=== PATIENT | male | born 1950 | race Caucasian/White ===

== ENCOUNTER 2019-03-14 13:15 | Inpatient (IN) | payer MEDICARE ==
[~2019-03-14] VITALS: Ht 172.7 cm; Wt 82.3 kg
--- NOTE | 2019-03-14 14:37 | HP ---
ADMIT DATE: 03/14/2019 CHIEF COMPLAINT AND HISTORY OF PRESENT ILLNESS: This 68-year-old white male is well known to me in followup in the office. The patient was admitted through the office on the day of admission with being off balance most of the time for the 24 hours before going side to side walking and fell the prior day in the garden getting abrasions to his face. He thought he might have passed out at that point in time. He feels like he might have had slurred speech at times during this time. PAST MEDICAL HISTORY: The patient's past medical history is remarkable for hypertension. He had a recent right rotator cuff repair, has history of hypothyroidism and has also had some recent kidney stones. CURRENT MEDICATIONS: Include amlodipine 10 mg daily, clonidine 0.1 mg b.i.d., levothyroxine 75 mcg daily, hydrochlorothiazide 12.5 daily. ALLERGIES: He has no known drug allergies. SOCIAL HISTORY AND FAMILY HISTORY: Noncontributory. REVIEW OF SYSTEMS: As mentioned above. PHYSICAL EXAMINATION: GENERAL: He is a well-developed, well-nourished white male, who appears out of sorts. VITAL SIGNS: Stable. He is afebrile. Blood pressure is 135/97, which is high for him in the office. HEAD, EYES, EARS, NOSE AND THROAT: Unremarkable. There is no nystagmus noted. NECK: Supple without adenopathy or thyromegaly. CHEST: Clear to auscultation and percussion. HEART: Regular rate and rhythm without S3, S4, or murmur. ABDOMEN: Soft, nontender without hepatosplenomegaly or mass. EXTREMITIES: Without cyanosis, clubbing, edema. NEUROLOGIC: He is intact. IMPRESSION: Decreased balance with fall and possible syncope with some possible slurred speech associated with this and feelings of dizziness, which is hard for him to describe. PLAN: The patient has been admitted, telemetry will be instituted. Cardiology and Neurology will be asked to see him. MRI of the head will be obtained and the patient will be monitored, managed and treated appropriately. PARISA REYNA MD DR: ELEAZAR/chava JOB#: [id number] / [id number]
[2019-03-14 14:45] VITALS: BP 137/93
[2019-03-14] MEDS ORDERED: traMADol 50 MG TABLET PO PRN (15:15)
[2019-03-14] MEDS ORDERED: AMLO10TA8 PO (15:16)
[2019-03-14] MEDS ORDERED: CLON0.1T PO (15:16)
[2019-03-14] MEDS ORDERED: VARE1TAB21 PO (15:16)
[2019-03-14] MEDS ORDERED: IBUP-1060 PO (15:16)
[2019-03-14] MEDS ORDERED: LEVO100T5 PO (15:16)
[2019-03-14] MEDS ORDERED: ASPI-630 PO (15:16)
[2019-03-14] MEDS ORDERED: TRAM50TA PO (15:16)
[2019-03-14] MEDS ORDERED: ACET325T9 PO (15:16)
[2019-03-14] MEDS ORDERED: MELO15TA23 PO (15:16)
[2019-03-14] MEDS ORDERED: HYDR12.58 PO (15:16)
[2019-03-14 15:52] LABS: BASO % 1 % (0-3); EOS # 0.1 x10^3/uL (0.0-0.7); EOS % 3 % (0-3); HEMATOCRIT 42.5 % (39.0-53.0); HEMOGLOBIN 14.5 g/dL (13.0-17.5); LYMPH # 1.1 x10^3/uL (1.0-4.8); LYMPH % 24 % (24-48); MEAN CORPUSCULAR HEMOGLOBIN 30 pg (25-35); MEAN CORPUSCULAR HGB CONC 34 g/dL (31-37); MEAN CORPUSCULAR VOLUME 87 fL (79-100); MONO # 0.6 x10^3/uL (0.0-1.1); MONO % 13 % (0-9); NEUT # 2.8 x10^3uL (1.8-7.7); NEUT % 60 % (31-73); PLATELET COUNT 196 x10^3/uL (140-400); RED BLOOD COUNT 4.88 x10^6/uL (4.30-5.70); RED CELL DISTRIBUTION WIDTH 14.5 % (11.5-14.5); WHITE BLOOD COUNT 4.7 x10^3/uL (4.0-11.0)
--- NOTE | 2019-03-14 16:01 | PDOC2 ---
JOSE LUIS REN ALUMNAE SECRETARY 03/14/19 1601: CARDIAC CONSULT DATE OF CONSULT Date of Consult DATE: 03/14/19 TIME: 15:46 REASON FOR CONSULT Reason for Consult: Syncope REFERRING PHYSICIAN Referring Physician: Dr. Barroso SOURCE Source: Chart review, Patient HISTORY OF PRESENT ILLNESS HISTORY OF PRESENT ILLNESS This is a 68 yo male who presented as a direct admit from Dr. William office secondary to syncope. Patient reports is at home with "the flu". Yesterday morning, was taking her things upstairs. When he got up the stairs, began to feel lightheaded and dizzy. [place] as if "someone drugged me". Decided to tap a nap. Woke up feeling much better. That afternoon worked outside in garage and in the yard, which was very physical work. At one point, he bent over to forklift picker some sticks. Immediately started feeling dizzy again and subsequently passed out falling to the ground. Thinks he passed out briefly. Does remember placing his hands down to catch himself. No traumatic injury although did have a few scrapes on his forehead. Since syncopal episode, patient continues to feel "drugged". Made an appointment with Dr. Barroso today, was admitted directly to the hospital for further evaluation and treatment. Denies any recent chest pain, diaphoresis, palpitations, orthopnea, LE edema, or nausea/vomiting. Reports somewhat chronic shortness of breath. Quit smoking 6 months ago and is on Chantix. History of hypertension. No previous history of CAD/heart disease, although naresh ent reports all of the males in his family have in their 60's due to heart attacks except one. PAST MEDICAL HISTORY Cardiovascular: HTN Pulmonary: Asthma CENTRAL NERVOUS SYSTEM: Other (no pertinent hx) GI: No pertinent hx Heme/Onc: No pertinent hx Hepatobiliary: No pertinent hx Psych: No pertinent hx Musculoskeletal: Osteoarthritis Rheumatologic: No pertinent hx Infectious disease: No pertinent hx ENT: No pertinent hx Renal/: Benign prostatic enlarg. Endocrine: Hypothyroidism Dermatology: No pertinent hx PAST SURGICAL HISTORY Past Surgical History: Other (right rotator cuff surgery. ) FAMILY HISTORY Family History: Heart Disease, Hypertension SOCIAL HISTORY Smoke: Quit (6 months ago) ALCOHOL: other (2 beers per night ) Drugs: None Lives: with Family ALLERGIES ALLERGIES: Coded Allergies: No Known Drug Allergies (Unverified , 03/14/19) ROS Review of System 14 point ROS conducted with pertinent positives noted above in HPI. PHYSICAL EXAM General: Alert, Oriented X3, Cooperative, No acute distress HEENT: Atraumatic, Mucous membr. moist/pink Lungs: Clear to auscultation, Other (diminished bases) Heart: Regular rate, Normal S1, Normal S2, Other (2/6 systolic murmur ) Abdomen: Soft, No tenderness Extremities: No edema, Normal pulses Skin: No significant lesion Neuro: Normal speech, Sensation intact Psych/Mental Status: Mental status NL, Mood NL VITALS VITALS Vital Signs Date Time Temp Pulse Resp B/P (MAP) Pulse Ox O2 Delivery O2 Flow Rate FiO2 03/14/19 14:45 98.4 82 22 137/93 (108) 96 Room Air 98.4 ASSESSMENT/PLAN ASSESSMENT/PLAN 1. Syncope; no acute event thus far on tele. MRI ordered. 2. Hypertension; controlled 3. Hypothyroidism; on replacement therapy 4. Family hx heart disease 5. H/o tobaccoism; recently quit on Chantix Recommendations EKG Routine labs Echo to assess LV systolic function Orthostatic HR and BP Monitor tele Check lipid panel Consider further ischemic workup given risk factors, probably as an outpatient If above unrevealing, consider outpatient event monitor to r/o contributing arrhythmias. DALLIN MYERS MD 03/15/19 0720: CARDIAC CONSULT ASSESSMENT/PLAN ASSESSMENT/PLAN Patient seen and examined 03/14/19. Agree with INTERNAL SECURITY MANAGER's assessment and plan. Syncope of uncertain etiology. Telemetry did not show any significant arrhythmia so far. Check orthostatics. Check 2-D echo to assess LV function and rule out structural abnormalities. If workup is negative, we will consider event monitor as an outpatient. Thank you for your consultation. JOSE LUIS REN APRN Mar 14, 2019 16:01 DALLIN MYERS MD Mar 15, 2019 07:20
[2019-03-14 16:17] LABS: ALBUMIN 3.7 g/dL (3.4-5.0); ALBUMIN/GLOBULIN RATIO 1.4 (1.0-1.7); CALCIUM 9.4 mg/dL (8.5-10.1); GFR 74.8; POTASSIUM 3.5 mmol/L (3.5-5.1); TOTAL BILIRUBIN 0.2 mg/dL (0.2-1.0); TOTAL PROTEIN 6.3 g/dL (6.4-8.2)
[2019-03-14 16:38] LABS: BILIRUBIN,URINE NEGATIVE (NEG); CLARITY,URINE CLEAR; COLOR,URINE YELLOW; NITRITE,URINE POSITIVE (NEG); PROTEIN,URINE NEGATIVE (NEG-TRACE)
[2019-03-14 16:47] LABS: BACTERIA,URINE MODERATE /HPF (0-FEW); RBC,URINE OCC /HPF (0-2); SQUAMOUS EPITHELIAL CELL,UR OCC /LPF
--- NOTE | 2019-03-14 16:52 | PDOC2 ---
NEUROLOGY CONSULT Date of Admission Date of Admission DATE: 03/14/19 TIME: 16:39 Reason for Consult Reason for Consult: IMPRESSION: Syncopal spell. Seizure evaluation. Fall. Confusion. HTN. Substance use/abuse, alcohol. RECOMMENDATIONS/PLAN: CT head and neck w/o contrast. MRI w/o contrast. Contrast MRI if has abnormal findings. EEG. Lab: see orders. Vit B1 100 mg daily. Continue ASA if no SAH or ICH. Alcohol abstinence. HISTORY OF PRESENT ILLNESS This is a 68-y-old male patient who presented as a direct admit from Dr. William office secondary to a syncopal spell. The patient stated he was working in the back yard in the afternoon. He felt dizzy then fell on the ground. He did not remember how long he was on the ground, but he realized he was face down on the soil. He got up continued doing his yard work for about 30 minutes then went inside the house and found he had blood on his face and nose. He felt dizziness, confusion, mind not clear, and not remember things well since falling. No vomiting, headaches, numbness or weakness. His suggested get medical attention, so he went to his Primary Care Physician on 03/14. PAST MEDICAL HISTORY Cardiovascular: HTN Pulmonary: Asthma CENTRAL NERVOUS SYSTEM: Other (no pertinent hx) GI: No pertinent hx Heme/Onc: No pertinent hx Hepatobiliary: No pertinent hx Psych: No pertinent hx Musculoskeletal: Osteoarthritis Rheumatologic: No pertinent hx Infectious disease: No pertinent hx ENT: No pertinent hx Renal/: Benign prostatic enlarg. Endocrine: Hypothyroidism Dermatology: No pertinent hx PAST SURGICAL HISTORY Right rotator cuff surgery. FAMILY HISTORY Heart Disease, Hypertension SOCIAL HISTORY Smoke: Quit (6 months ago) ALCOHOL: 2 beers or Jamel per night for many years. Drugs: None Lives: with Family ALLERGIES Coded Allergies: No Known Drug Allergies (Unverified , 03/14/19) MEDICATIONS: Refer to [facility] REVIEW OF SYSTEMS: Constitutional: No malnutrition, weight loss, cachexia. Head: No traumatic brain or head injury. Skin: No edema, or rash. Ear: No infection. Eyes: No vision loss or color blindness. Nose: No bleeding or purulent discharges. Hearing: No hearing decrease. Neck: No injury. Cardiac: HTN. Pulmonary: Former smoker. GI: No GI ulcer, GI bleeding. Urinary/genital: No dysuria, incontinence, urinary retention. Endocrinologic: Hypothyroidism. Skeletomuscular: No muscular atrophy. Neurological: see HP. Psychiatric: Denies drug use/abuse. Otherwise, not -gbznj review of systems. PHYSICAL EXAMINATION: General appearance is in subacute distress. HEENT: Normocephalic and nontraumatic. Eyes, nose, ears, and throat are unrema rkable. Neck is supple. No lymphadenopathy. No crepitus. Cardiovascular: S1, S2, regular rate and rhythm. Pulmonary: Clear to auscultation bilaterally. Abdomen: Bowel sounds are positive. Abdomen is soft, nontender, and nondistended. Extremities: No rash, lesions, or edema. No restriction of range of motion NEUROLOGICAL EXAMINATION: Awake. Oriented to time, place and person. PERRL. EOMI. CN: no focal findings. Muscle tone: within normal. Muscle strength: 5 DTR: 2 Plantar reflex: Flexor response bilaterally Gait: At baseline normal. Sensory exam: no abnormal findings. No cerebellar signs elicited. F-T-N test fine. Current Medications Current Medications Current Medications Acetaminophen (Tylenol) 650 mg PRN Q6HRS PRN PO MILD PAIN; Start 03/14/19 at 18:00 Amlodipine Besylate (Norvasc) 15 mg DAILY PO ; Start 03/15/19 at 09:00 Aspirin (Children'S Aspirin) 81 mg DAILY PO ; Start 03/15/19 at 09:00 Clonidine HCl (Catapres) 0.1 mg DAILY PO ; Start 03/15/19 at 09:00 Levothyroxine Sodium (Synthroid) 100 mcg DAILYAC PO ; Start 03/15/19 at 07:30 Tramadol HCl (Ultram) 50 mg PRN Q6HRS PRN PO MODERATE PAIN; Start 03/14/19 at 15:15 Hydrochlorothiazide (Hydrodiuril) 25 mg DAILY PO ; Start 03/15/19 at 09:00 Ibuprofen (Motrin) 800 mg PRN Q8HRS PRN PO INFLAMMATION; Start 03/14/19 at 15:30 Meloxicam (Mobic) 15 mg DAILY PO ; Start 03/15/19 at 09:00 Varenicline (Chantix) 1 mg BID PO ; Start 03/14/19 at 21:00 Active Scripts Active Reported Chantix (Varenicline Tartrate) 1 Mg Tablet 1 Mg PO BID Tramadol Hcl 50 Mg Tablet 50 Mg PO Q6HRS PRN Tylenol (Acetaminophen) 325 Mg Tablet 650 Mg PO Q6HRS Ibuprofen 800 Mg Tablet 800 Mg PO PRN Q6HRS PRN Aspirin 81 Mg Tab.chew 81 Mg PO DAILY Meloxicam 15 Mg Tablet 15 Mg PO DAILY Levothyroxine Sodium 100 Mcg Tablet 100 Mcg PO DAILYAC Amlodipine Besylate 10 Mg Tablet 15 Mg PO DAILY Hydrochlorothiazide Tablet (Hydrochlorothiazide) 12.5 Mg Tablet 25 Mg PO DAILY Clonidine Hcl 0.1 Mg Tablet 0.1 Mg PO DAILY Allergies Allergies: Allergies Coded Allergies Type Severity Reaction Last Updated Verified No Known Drug Allergies 03/14/19 No ROS Review of System The patient denies any associated fevers, chills, headache, ear pain, rhinorrhea, sore throat, stiff neck, productive cough, chest pain, shortness of breath, back or flank pain, abdominal pain, nausea, vomiting, diarrhea, constipation, dysuria, rash, numbness, weakness, tingling, incontinence, difficulty ambulating, or diaphoresis. Physical Exam Physical Exam General: Well developed, well nourished, no acute distress, well appearing HEENT: Pupils equally round and reactive to light, EOMI, no discharge, normal conjunctiva Neck: Supple, no nuchal rigidity, no JVD, trachea midline, no tenderness Cardiac: RRR, no murmurs, no gallops, no rubs Chest/Lungs: CTAB, no wheeze, no rhonchi, no crackles Abdomen: soft, non-distended, no guarding, no peritoneal signs, non-tender Back: No tenderness Extremities: no edema, pulses intact, non-tender,capillary refill <3 sec bilateral upper and lower extremities, Neuro: Alert and oriented x 4, no focal deficits, normal speech Vitals Vitals: Vital Signs Date Time Temp Pulse Resp B/P (MAP) Pulse Ox O2 Delivery O2 Flow Rate FiO2 03/14/19 15:50 Room Air 03/14/19 14:45 98.4 82 22 137/93 (108) 96 98.4 Labs Labs Laboratory Tests Test 03/14/19 15:35 White Blood Count 4.7 x10^3/uL (4.0-11.0) Red Blood Count 4.88 x10^6/uL (4.30-5.70) Hemoglobin 14.5 g/dL (13.0-17.5) Hematocrit 42.5 % (39.0-53.0) Mean Corpuscular Volume 87 fL (79-100) Mean Corpuscular Hemoglobin 30 pg (25-35) Mean Corpuscular Hemoglobin Concent 34 g/dL (31-37) Red Cell Distribution Width 14.5 % (11.5-14.5) Platelet Count 196 x10^3/uL (140-400) Neutrophils (%) (Auto) 60 % (31-73) Lymphocytes (%) (Auto) 24 % (24-48) Monocytes (%) (Auto) 13 % (0-9) Eosinophils (%) (Auto) 3 % (0-3) Basophils (%) (Auto) 1 % (0-3) Neutrophils # (Auto) 2.8 x10^3uL (1.8-7.7) Lymphocytes # (Auto) 1.1 x10^3/uL (1.0-4.8) Monocytes # (Auto) 0.6 x10^3/uL (0.0-1.1) Eosinophils # (Auto) 0.1 x10^3/uL (0.0-0.7) Basophils # (Auto) 0.0 x10^3/uL (0.0-0.2) Sodium Level 141 mmol/L (136-145) Potassium Level 3.5 mmol/L (3.5-5.1) Chloride Level 103 mmol/L (98-107) Carbon Dioxide Level 28 mmol/L (21-32) Anion Gap 10 (6-14) Blood Urea Nitrogen 19 mg/dL (8-26) Creatinine 1.0 mg/dL (0.7-1.3) Estimated GFR (Cockcroft-Gault) 74.8 BUN/Creatinine Ratio 19 (6-20) Glucose Level 98 mg/dL (70-99) Calcium Level 9.4 mg/dL (8.5-10.1) Total Bilirubin 0.2 mg/dL (0.2-1.0) Aspartate Amino Transf (AST/SGOT) 25 U/L (15-37) Alanine Aminotransferase (ALT/SGPT) 42 U/L (16-63) Alkaline Phosphatase 111 U/L (46-116) Total Protein 6.3 g/dL (6.4-8.2) Albumin 3.7 g/dL (3.4-5.0) Albumin/Globulin Ratio 1.4 (1.0-1.7) Thyroid Stimulating Hormone (TSH) 3.090 uIU/mL (0.358-3.74) Laboratory Tests Test 03/14/19 15:35 White Blood Count 4.7 x10^3/uL (4.0-11.0) Red Blood Count 4.88 x10^6/uL (4.30-5.70) Hemoglobin 14.5 g/dL (13.0-17.5) Hematocrit 42.5 % (39.0-53.0) Mean Corpuscular Volume 87 fL (79-100) Mean Corpuscular Hemoglobin 30 pg (25-35) Mean Corpuscular Hemoglobin Concent 34 g/dL (31-37) Red Cell Distribution Width 14.5 % (11.5-14.5) Platelet Count 196 x10^3/uL (140-400) Neutrophils (%) (Auto) 60 % (31-73) Lymphocytes (%) (Auto) 24 % (24-48) Monocytes (%) (Auto) 13 % (0-9) Eosinophils (%) (Auto) 3 % (0-3) Basophils (%) (Auto) 1 % (0-3) Neutrophils # (Auto) 2.8 x10^3uL (1.8-7.7) Lymphocytes # (Auto) 1.1 x10^3/uL (1.0-4.8) Monocytes # (Auto) 0.6 x10^3/uL (0.0-1.1) Eosinophils # (Auto) 0.1 x10^3/uL (0.0-0.7) Basophils # (Auto) 0.0 x10^3/uL (0.0-0.2) Sodium Level 141 mmol/L (136-145) Potassium Level 3.5 mmol/L (3.5-5.1) Chloride Level 103 mmol/L (98-107) Carbon Dioxide Level 28 mmol/L (21-32) Anion Gap 10 (6-14) Blood Urea Nitrogen 19 mg/dL (8-26) Creatinine 1.0 mg/dL (0.7-1.3) Estimated GFR (Cockcroft-Gault) 74.8 BUN/Creatinine Ratio 19 (6-20) Glucose Level 98 mg/dL (70-99) Calcium Level 9.4 mg/dL (8.5-10.1) Total Bilirubin 0.2 mg/dL (0.2-1.0) Aspartate Amino Transf (AST/SGOT) 25 U/L (15-37) Alanine Aminotransferase (ALT/SGPT) 42 U/L (16-63) Alkaline Phosphatase 111 U/L (46-116) Total Protein 6.3 g/dL (6.4-8.2) Albumin 3.7 g/dL (3.4-5.0) Albumin/Globulin Ratio 1.4 (1.0-1.7) Thyroid Stimulating Hormone (TSH) 3.090 uIU/mL (0.358-3.74) DARRICK CHRISTINA MD Mar 14, 2019 16:51
[2019-03-14 17:55] LABS: AMPHETAMINE/METHAMPHETAMINE NEG (NEG); BARBITURATES NEG (NEG); BENZODIAZEPINES NEG (NEG); CANNABINOIDS NEG (NEG); COCAINE NEG (NEG); METHADONE NEG (NEG); OPIATES NEG (NEG); PHENCYCLIDINE NEG (NEG)
[2019-03-14] MEDS ORDERED: ACETAMINOPHEN 325 MG TABLET. PO PRN (18:00)
[2019-03-14] MEDS: THIAMINE 100 MG TABLET. PO SCH (18:18)
[2019-03-14] MEDS: IBUPROFEN 400 MG TABLET. PO PRN (18:18)
[2019-03-14 19:00] VITALS: BP_SYST 135; BP_SYST 140; BP_SYST 150; BP_DIAS 89; BP_DIAS 91; BP_DIAS 96
--- NOTE | 2019-03-14 19:10 | NUR ---
Pt in bed assessment completed vss poc explained pt denied pain at time of assessment. Pt reminded to call for assistance prior to getting oob, call light placed in reach bed alarm set will resume care.
[2019-03-14] MEDS ORDERED: cefTRIAXone IV Push 1 GM VIAL. IVP SCH (21:00)
[2019-03-14] MEDS: VARENICLINE 0.5 MG TABLET. PO SCH (21:48)
[2019-03-14 22:53] VITALS: BP 132/82
[2019-03-15 03:06] VITALS: BP 134/93
[2019-03-15] MEDS: IBUPROFEN 400 MG TABLET. PO PRN (04:39)
[2019-03-15 05:38] LABS: CHOLESTEROL/HDL RATIO 4.8
[2019-03-15 07:00] VITALS: BP 140/88
[2019-03-15] MEDS ORDERED: LEVOTHYROXINE 100 MCG TABLET PO SCH (07:30)
[2019-03-15] MEDS: THIAMINE 100 MG TABLET. PO SCH (07:42)
--- NOTE | 2019-03-15 08:28 | PDOC ---
Provider Note Provider Note OUT OF ROOM FOR PROCEDURE- VSS, NO TEMP- all labs ok but has uti, cult pending- cont CAROLINA Santana MD Mar 15, 2019 08:28
[2019-03-15] MEDS ORDERED: ASPIRIN CHEWABLE 81 MG TABLET. PO SCH (09:00)
[2019-03-15] MEDS ORDERED: cloNIDine HCL 0.1 MG TABLET PO SCH (09:00)
[2019-03-15] MEDS ORDERED: hydroCHLOROthiazide 25 MG TABLET PO SCH (09:00)
[2019-03-15] MEDS ORDERED: MELOXICAM 7.5 MG TABLET PO SCH (09:00)
[2019-03-15] MEDS ORDERED: amLODIPine BESYLATE 10 MG TABLET PO SCH (09:00)
[2019-03-15] MEDS ORDERED: LACTOBACILLUS RHAMNOSUS GG 1 CAPSULE. PO SCH (09:00)
[2019-03-15] MEDS: VARENICLINE 0.5 MG TABLET. PO SCH (09:00)
--- NOTE | 2019-03-15 09:59 | RAD ---
Examination: CT HEAD AND CERVICAL SPINE WO History: Fall, nose, forehead injury SYNCOPE AT HOME NO PREV Comparison/Correlation: None Findings: Axial images of the head and cervical spine were obtained without contrast. Sagittal and coronal reformatted images were provided. Mild atrophy is present. No intracranial hemorrhage, midline shift, or mass effect. Atlantoaxial joint degenerative remodeling is present along with sclerosis. Severe C3-C5 disc space narrowing is present with endplate sclerosis. Endplate spurring with bony encroachment on the C3-4 neural foramen is present with severe narrowing. Bony encroachment on the right C3-4 neural foramen with significant narrowing is also present. Bony encroachment with mild to moderate narrowing of the right C4-5 neural foramen is evident. Spinal canal stenosis at these levels also noted. Facet joint degenerative changes of the cervical spine noted greater on the right. Vertebral body heights are adequate. No fracture or bony destruction. Soft tissues are grossly unremarkable. Mild tracheomalacia is evident at the upper thoracic tracheal level. Impression: Advanced degenerative changes from C3 to C5. No intracranial hemorrhage. No suspicious malalignment or fracture. PQRS Compliance Statement: One or more of the following individualized dose reduction techniques were utilized for this examination: 1. Automated exposure control 2. Adjustment of the mA and/or kV according to patient size 3. Use of iterative reconstruction technique Electronically signed by: Aneudy Boyer MD (03/15/2019 9:56 AM) [facility]
--- NOTE | 2019-03-15 10:46 | CARD ---
MR#: [id number] Date of Study: 03/15/2019 Ordering Physician: JOSE LUIS REN, Referring Physician: PARISA REYNA Tech: Rupinder Bolden RDCS APPROVED REPORT EXAM: Two-dimensional and M-mode echocardiogram with Doppler and color Doppler. Other Information Quality : Good INDICATION Syncope RISK FACTORS Smoking 2D DIMENSIONS Left Atrium(2D)2.5 (1.6-4.0cm)IVSd1.0 (0.7-1.1cm) Aortic Root(2D)3.1 (2.0-3.7cm)LVDd3.4 (3.9-5.9cm) LVOT Diameter2.2 (1.8-2.4cm)PWd1.0 (0.7-1.1cm) LVDs1.7 (2.5-4.0cm)FS (%) 30.0 % SV37.4 mlLVEF(%)60.0 (>50%) Aortic Valve AoV Peak Mumtaz.160.2cm/sAoV VTI26.5cm AO Peak GR.10.3mmHgLVOT Peak Mumtaz.165.9cm/s AO Mean GR.6mmHgAVA (VMAX)3.98cm2 JESS (VTI)4.76dw4JW P 1/2 Oyxt186cn Mitral Valve MV E Fwejqojk34.5cm/sMV DECEL KVMP680do MV A Kmxyqtkt09.8cm/sE/A Ratio0.6 Tricuspid Valve TR P. Zevsifmn436rg/sRAP UVSOVKAB4isMi TR Peak Gr.19kcQrJXHE26rnJi Pulmonary Vein S1 Mfruewvi64.5cm/sD2 Ccikqxao06.9cm/s LEFT VENTRICLE The left ventricle is normal size. There is normal left ventricular wall thickness. The left ventricu lar systolic function is normal and the ejection fraction is within normal range. The Ejection Fracti on is 60-65%. There is normal LV segmental wall motion. Transmitral Doppler flow pattern is Grade I-a bnormal relaxation pattern. RIGHT VENTRICLE The right ventricle is normal size. The right ventricular systolic function is normal. ATRIA The left atrium size is normal. The right atrium size is normal. The interatrial septum is intact wit h no evidence for an atrial septal defect or patent foramen ovale as noted on 2-D or Doppler imaging. AORTIC VALVE The aortic valve is calcified but opens well. Doppler and Color Flow revealed trace to mild aortic re gurgitation. There is no significant aortic valvular stenosis. MITRAL VALVE The mitral valve is calcified but opens well. There is no evidence of mitral valve prolapse. There is no mitral valve stenosis. Doppler and Color Flow revealed no mitral valve regurgitation noted. TRICUSPID VALVE The tricuspid valve is normal in structure and function. Doppler and Color Flow revealed physiologica l tricuspid regurgitation. The PA pressure was estimated at 24 mmHg. There is no tricuspid valve sten osis. PULMONIC VALVE The pulmonic valve is not well visualized. Doppler and Color Flow revealed no pulmonic valvular regur gitation. There is no pulmonic valvular stenosis. GREAT VESSELS The aortic root is normal in size. The ascending aorta is not well seen. The IVC is normal in size an d collapses >50% with inspiration. PERICARDIAL EFFUSION There is no evidence of significant pericardial effusion. Critical Notification Critical Value: No <Conclusion> The left ventricular systolic function is normal and the ejection fraction is within normal range. Th e Ejection Fraction is 60-65%. There is normal LV segmental wall motion. Signed by : Jayden Bradford, Electronically Approved : 03/15/2019 10:46:20
[2019-03-15 11:00] VITALS: BP 114/80
[2019-03-15] MEDS ORDERED: GADOBUTROL 7.5 MMOL/7.5 ML VIAL IV ONE (12:15)
--- NOTE | 2019-03-15 12:55 | NUR ---
SS following for discharge planning. SS reviewed pt chart. Pt is from home with spouse and is currently on room air. No discharge needs noted at this time. SS will continue to follow for pending discharge needs.
--- NOTE | 2019-03-15 14:14 | PDOC ---
CARDIO Progress Notes Date and Time Date of Service 03/15/2019 Time of Evaluation 1400 Subjective Subjective: No Chest Pain, No shortness of breath, No Palpitations, No Dizziness Vitals Vitals Vital Signs Date Time Temp Pulse Resp B/P (MAP) Pulse Ox O2 Delivery O2 Flow Rate FiO2 03/15/19 11:00 97.7 86 18 114/80 (91) 96 Room Air 97.7 Weight Weight [ ] Input and Output Intake and Output Intake and Output 03/15/19 06:59 Intake Total 720 ml Output Total 600 ml Balance 120 ml Intake Oral 720 ml Output Urine Total 600 ml # Voids 1 Laboratory Labs Laboratory Tests Test 03/14/19 15:35 03/14/19 16:30 03/15/19 04:10 White Blood Count 4.7 x10^3/uL (4.0-11.0) Red Blood Count 4.88 x10^6/uL (4.30-5.70) Hemoglobin 14.5 g/dL (13.0-17.5) Hematocrit 42.5 % (39.0-53.0) Mean Corpuscular Volume 87 fL (79-100) Mean Corpuscular Hemoglobin 30 pg (25-35) Mean Corpuscular Hemoglobin Concent 34 g/dL (31-37) Red Cell Distribution Width 14.5 % (11.5-14.5) Platelet Count 196 x10^3/uL (140-400) Neutrophils (%) (Auto) 60 % (31-73) Lymphocytes (%) (Auto) 24 % (24-48) Monocytes (%) (Auto) 13 % (0-9) Eosinophils (%) (Auto) 3 % (0-3) Basophils (%) (Auto) 1 % (0-3) Neutrophils # (Auto) 2.8 x10^3uL (1.8-7.7) Lymphocytes # (Auto) 1.1 x10^3/uL (1.0-4.8) Monocytes # (Auto) 0.6 x10^3/uL (0.0-1.1) Eosinophils # (Auto) 0.1 x10^3/uL (0.0-0.7) Basophils # (Auto) 0.0 x10^3/uL (0.0-0.2) Sodium Level 141 mmol/L (136-145) Potassium Level 3.5 mmol/L (3.5-5.1) Chloride Level 103 mmol/L (98-107) Carbon Dioxide Level 28 mmol/L (21-32) Anion Gap 10 (6-14) Blood Urea Nitrogen 19 mg/dL (8-26) Creatinine 1.0 mg/dL (0.7-1.3) Estimated GFR (Cockcroft-Gault) 74.8 BUN/Creatinine Ratio 19 (6-20) Glucose Level 98 mg/dL (70-99) Calcium Level 9.4 mg/dL (8.5-10.1) Total Bilirubin 0.2 mg/dL (0.2-1.0) Aspartate Amino Transf (AST/SGOT) 25 U/L (15-37) Alanine Aminotransferase (ALT/SGPT) 42 U/L (16-63) Alkaline Phosphatase 111 U/L (46-116) Total Protein 6.3 g/dL (6.4-8.2) Albumin 3.7 g/dL (3.4-5.0) Albumin/Globulin Ratio 1.4 (1.0-1.7) Thyroid Stimulating Hormone (TSH) 3.090 uIU/mL (0.358-3.74) Urine Collection Type Void Urine Color Yellow Urine Clarity Clear Urine pH 7.0 Urine Specific [place] 1.015 Urine Protein Negative mg/dL (NEG-TRACE) Urine Glucose (UA) Negative mg/dL (NEG) Urine Ketones (Stick) Negative mg/dL (NEG) Urine Blood Negative (NEG) Urine Nitrite Positive (NEG) Urine Bilirubin Negative (NEG) Urine Urobilinogen Dipstick 1.0 mg/dL (0.2 mg/dL) Urine Leukocyte Esterase Moderate (NEG) Urine RBC Occ /HPF (0-2) Urine WBC 5-10 /HPF (0-4) Urine Squamous Epithelial Cells Occ /LPF Urine Bacteria Moderate /HPF (0-FEW) Urine Opiates Screen Neg (NEG) Urine Methadone Screen Neg (NEG) Urine Barbiturates Neg (NEG) Urine Phencyclidine Screen Neg (NEG) Urine Amphetamine/Methamphetamine Neg (NEG) Urine Benzodiazepines Screen Neg (NEG) Urine Cocaine Screen Neg (NEG) Urine Cannabinoids Screen Neg (NEG) Urine Ethyl Alcohol Neg (NEG) Triglycerides Level 138 mg/dL (0-150) Cholesterol Level 157 mg/dL (0-200) LDL Cholesterol, Calculated 96 mg/dL (0-100) VLDL Cholesterol, Calculated 28 mg/dL (0-40) Non-HDL Cholesterol Calculated 124 mg/dL (0-129) HDL Cholesterol 33 mg/dL (40-60) Cholesterol/HDL Ratio 4.8 Physical Exam HEENT: Neck Supple W Full Motion Chest: Symmetric LUNGS: Clear to Auscultation Heart: S1S2, RRR (SR) Abdomen: Soft N/T Extremities: No Calf Tenderness Neurology: alert, oriented, follow commands Assessment Assessment 1. Syncope: MRI pending. negative for orthostasis. No arrhythmias so far. EF and WM nml. Negative for CSH. 2. Hypertension; controlled 3. Hypothyroidism; on replacement therapy 4. Family hx heart disease 5. H/o tobaccoism; recently quit on Chantix 6. UTI: per PCP Recommendations 1. Plan for outpt event monitor. 2. Follow up in office in 4 weeks. JAREN YANEZ APRN Mar 15, 2019 14:14
--- NOTE | 2019-03-15 14:25 | NUR ---
Nursing: Cardio. Appointment with Dr. Resendiz scheduled for April 26 at 2:30. Request for outpatient even monitor for 3 weeks per Deonna. Will sent to patients house per office
[2019-03-15 15:00] VITALS: BP 138/94
--- NOTE | 2019-03-15 15:52 | RAD ---
MRI of the Brain without and with Contrast 03/15/2019 Clinical History: Dizziness, syncope and seizure. Technique: Unenhanced T1-weighted sagittal and axial and FLAIR, T2-weighted, gradient echo and diffusion-weighted axial images of the brain were obtained. Additionally thin section FLAIR coronal images of the temporal lobes were obtained. After the intravenous administration of 7.5 cc of Gadavist, enhanced T1-weighted axial and coronal images of the brain were obtained. Findings: Comparison is made to the patient's CT scan of the head dated 03/14/2019. There is generalized parenchymal atrophy. Patchy and small scattered areas of abnormally increased signal intensity are seen within the periventricular and subcortical white matter of both cerebral hemispheres on the FLAIR and T2-weighted images consistent with areas of minimal small vessel ischemic disease. No acute parenchymal abnormality is seen. No abnormal area of contrast enhancement is noted. No extra-axial fluid collection is seen. There is no MRI evidence of acute ischemia/infarction. Images through the temporal lobes are within normal limits. Mild mucosal thickening is seen scattered throughout the paranasal sinuses. There are minimal bilateral mastoid effusions. Normal flow voids are seen within the major vascular structures surrounding the brain parenchyma. Impression: No acute parenchymal abnormality is seen. Electronically signed by: Bucky Martinez MD (03/15/2019 3:49 PM) [id number]
--- NOTE | 2019-03-15 17:05 | PDOC ---
PROGRESS NOTES Assessment Assessment Syncopal spell. Seizure not likely. Fall. Confusion. HTN. Substance use/abuse, alcohol. RECOMMENDATIONS/PLAN: Vit B1 100 mg daily. Continue ASA daily. Alcohol abstinence. FU with PCP. MRI w/wo contrast plus seizure protocol: negative. HISTORY OF PRESENT ILLNESS This is a 68-y-old male patient who presented as a direct admit from Dr. William office secondary to a syncopal spell. The patient stated he was working in the back yard in the afternoon. He felt dizzy then fell on the ground. He did not remember how long he was on the ground, but he realized he was face down on the soil. He got up continued doing his yard work for about 30 minutes then went inside the house and found he had blood on his face and nose. He felt dizziness, confusion, mind not clear, and not remember things well since falling. No vomiting, headaches, numbness or weakness. His suggested get medical attention, so he went to his Primary Care Physician on 03/14. PAST MEDICAL HISTORY Cardiovascular: HTN Pulmonary: Asthma CENTRAL NERVOUS SYSTEM: Other (no pertinent hx) GI: No pertinent hx Heme/Onc: No pertinent hx Hepatobiliary: No pertinent hx Psych: No pertinent hx Musculoskeletal: Osteoarthritis Rheumatologic: No pertinent hx Infectious disease: No pertinent hx ENT: No pertinent hx Renal/: Benign prostatic enlarg. Endocrine: Hypothyroidism Dermatology: No pertinent hx PAST SURGICAL HISTORY Right rotator cuff surgery. FAMILY HISTORY Heart Disease, Hypertension SOCIAL HISTORY Smoke: Quit (6 months ago) ALCOHOL: 2 beers or Jamel per night for many years. Drugs: None Lives: with Family ALLERGIES Coded Allergies: No Known Drug Allergies (Unverified , 03/14/19) MEDICATIONS: Refer to [facility] REVIEW OF SYSTEMS: Constitutional: No malnutrition, weight loss, cachexia. Head: No traumatic brain or head injury. Skin: No edema, or rash. Ear: No infection. Eyes: No vision loss or color blindness. Nose: No bleeding or purulent discharges. Hearing: No hearing decrease. Neck: No injury. Cardiac: HTN. Pulmonary: Former smoker. GI: No GI ulcer, GI bleeding. Urinary/genital: No dysuria, incontinence, urinary retention. Endocrinologic: Hypothyroidism. Skeletomuscular: No muscular atrophy. Neurological: see HP. Psychiatric: Denies drug use/abuse. Otherwise, not [id number] review of systems. PHYSICAL EXAMINATION: General appearance is in subacute distress. HEENT: Normocephalic and nontraumatic. Eyes, nose, ears, and throat are unremarkable. Neck is supple. No lymphadenopathy. No crepitus. Cardiovascular: S1, S2, regular rate and rhythm. Pulmonary: Clear to auscultation bilaterally. Abdomen: Bowel sounds are positive. Abdomen is soft, nontender, and nondistended. Extremities: No rash, lesions, or edema. No restriction of range of motion NEUROLOGICAL EXAMINATION: Awake. Oriented to time, place and person. PERRL. EOMI. CN: no focal findings. Muscle tone: within normal. Muscle strength: 5 DTR: 2 Plantar reflex: Flexor response bilaterally Gait: At baseline normal. Sensory exam: no abnormal findings. No cerebellar signs elicited. F-T-N test fine. Objective Objective Vital Signs Date Time Temp Pulse Resp B/P (MAP) Pulse Ox O2 Delivery O2 Flow Rate FiO2 03/15/19 15:00 98.3 75 18 138/94 (109) 96 Room Air 98.3 Intake and Output 03/15/19 07:00 Intake Total 720 ml Output Total 600 ml Balance 120 ml Intake Oral 720 ml Output Urine Total 600 ml # Voids 1 Vitals Signs Vitals VS - Last 72 Hours, by Label Date Time Temp Pulse Resp B/P (MAP) Pulse Ox O2 Delivery O2 Flow Rate FiO2 03/15/19 15:00 98.3 75 18 138/94 (109) 96 Room Air 98.3 03/15/19 11:00 97.7 86 18 114/80 (91) 96 Room Air 97.7 03/15/19 08:10 Room Air 03/15/19 07:43 90 03/15/19 07:42 90 03/15/19 07:00 97.7 87 18 140/88 (105) 95 Room Air 97.7 03/15/19 03:06 98.4 76 16 134/93 (107) 96 Room Air 98.4 03/14/19 22:53 98.2 80 16 132/82 (99) 97 Room Air 98.2 03/14/19 19:05 Room Air 03/14/19 19:00 97.9 90 16 135/89 (104) 95 Room Air 97.9 03/14/19 19:00 90 150/96 (114) 03/14/19 19:00 90 140/91 (107) 03/14/19 15:50 Room Air 03/14/19 14:45 98.4 82 22 137/93 (108) 96 Room Air 98.4 Laboratory Laboratory Laboratory Tests Test 03/15/19 04:10 Triglycerides Level 138 mg/dL (0-150) Cholesterol Level 157 mg/dL (0-200) LDL Cholesterol, Calculated 96 mg/dL (0-100) VLDL Cholesterol, Calculated 28 mg/dL (0-40) Non-HDL Cholesterol Calculated 124 mg/dL (0-129) HDL Cholesterol 33 mg/dL (40-60) Cholesterol/HDL Ratio 4.8 Medication Medications Current Medications Acetaminophen (Tylenol) 650 mg PRN Q6HRS PRN PO MILD PAIN Last administered on 03/15/19 12:10; Start 03/14/19 at 18:00 Amlodipine Besylate (Norvasc) 15 mg DAILY PO Last administered on 03/15/19 07:42; Start 03/15/19 at 09:00 Aspirin (Children'S Aspirin) 81 mg DAILY PO Last administered on 03/15/19 07:42; Start 03/15/19 at 09:00 Ceftriaxone Sodium (Rocephin) 1 gm Q24H IVP Last administered on 03/14/19 21:48; Start 03/14/19 at 21:00 Clonidine HCl (Catapres) 0.1 mg DAILY PO Last administered on 03/15/19 07:43; Start 03/15/19 at 09:00 Gadobutrol (Gadavist) 7.5 mmol 1X ONCE IV Last administered on 03/15/19 12:15; Start 03/15/19 at 12:15; Stop 03/15/19 at 12:16; Status DC Hydrochlorothiazide (Hydrodiuril) 25 mg DAILY PO Last administered on 03/15/19 07:42; Start 03/15/19 at 09:00 Lactobacillus Rhamnosus (Culturelle) 1 cap BID PO Last administered on 03/15/19 12:10; Start 03/15/19 at 09:00 Levothyroxine Sodium (Synthroid) 100 mcg DAILYAC PO Last administered on 03/15/19 06:05; Start 03/15/19 at 07:30 Meloxicam (Mobic) 15 mg DAILY PO Last administered on 03/15/19at 07:43; Start 03/15/19 at 09:00 Thiamine Mononitrate (Vitamin B-1) 100 mg DAILY PO Last administered on 03/15/19at 07:42; Start 03/14/19 at 18:00 Varenicline (Chantix) 1 mg BID PO ; Start 03/14/19 at 21:00 Comment Review of Relevant I have reviewed the following items eva (where applicable) has been applied. DARRICK CHRISTINA MD Mar 15, 2019 17:05
--- NOTE | 2019-03-15 17:07 | PDOC ---
PROGRESS NOTES Assessment Assessment Syncopal spell. Seizure evaluation. Fall. Confusion. HTN. Substance use/abuse, alcohol. RECOMMENDATIONS/PLAN: Vit B1 100 mg daily. Continue ASA if no SAH or ICH. Alcohol abstinence. No driving for 6 months anytime after a seizure or seizure like episode. EEG: pending. HISTORY OF PRESENT ILLNESS This is a 68-y-old male patient who presented as a direct admit from Dr. William office secondary to a syncopal spell. The patient stated he was working in the back yard in the afternoon. He felt dizzy then fell on the ground. He did not remember how long he was on the ground, but he realized he was face down on the soil. He got up continued doing his yard work for about 30 minutes then went inside the house and found he had blood on his face and nose. He felt dizziness, confusion, mind not clear, and not remember things well since falling. No vomiting, headaches, numbness or weakness. His suggested get medical attention, so he went to his Primary Care Physician on 03/14. PAST MEDICAL HISTORY Cardiovascular: HTN Pulmonary: Asthma CENTRAL NERVOUS SYSTEM: Other (no pertinent hx) GI: No pertinent hx Heme/Onc: No pertinent hx Hepatobiliary: No pertinent hx Psych: No pertinent hx Musculoskeletal: Osteoarthritis Rheumatologic: No pertinent hx Infectious disease: No pertinent hx ENT: No pertinent hx Renal/: Benign prostatic enlarg. Endocrine: Hypothyroidism Dermatology: No pertinent hx PAST SURGICAL HISTORY Right rotator cuff surgery. FAMILY HISTORY Heart Disease, Hypertension SOCIAL HISTORY Smoke: Quit (6 months ago) ALCOHOL: 2 beers or Jamel per night for many years. Drugs: None Lives: with Family ALLERGIES Coded Allergies: No Known Drug Allergies (Unverified , 03/14/19) MEDICATIONS: Refer to [facility] REVIEW OF SYSTEMS: Constitutional: No malnutrition, weight loss, cachexia. Head: No traumatic brain or head injury. Skin: No edema, or rash. Ear: No infection. Eyes: No vision loss or color blindness. Nose: No bleeding or purulent discharges. Hearing: No hearing decrease. Neck: No injury. Cardiac: HTN. Pulmonary: Former smoker. GI: No GI ulcer, GI bleeding. Urinary/genital: No dysuria, incontinence, urinary retention. Endocrinologic: Hypothyroidism. Skeletomuscular: No muscular atrophy. Neurological: see HP. Psychiatric: Denies drug use/abuse. Otherwise, not [id number] review of systems. PHYSICAL EXAMINATION: General appearance is in subacute distress. HEENT: Normocephalic and nontraumatic. Eyes, nose, ears, and throat are unremarkable. Neck is supple. No lymphadenopathy. No crepitus. Cardiovascular: S1, S2, regular rate and rhythm. Pulmonary: Clear to auscultation bilaterally. Abdomen: Bowel sounds are positive. Abdomen is soft, nontender, and nondistended. Extremities: No rash, lesions, or edema. No restriction of range of motion NEUROLOGICAL EXAMINATION: Awake. Oriented to time, place and person. PERRL. EOMI. CN: no focal findings. Muscle tone: within normal. Muscle strength: 5 DTR: 2 Plantar reflex: Flexor response bilaterally Gait: At baseline normal. Sensory exam: no abnormal findings. No cerebellar signs elicited. F-T-N test fine. Objective Objective Vital Signs Date Time Temp Pulse Resp B/P (MAP) Pulse Ox O2 Delivery O2 Flow Rate FiO2 03/15/19 15:00 98.3 75 18 138/94 (109) 96 Room Air 98.3 Intake and Output 03/15/19 07:00 Intake Total 720 ml Output Total 600 ml Balance 120 ml Intake Oral 720 ml Output Urine Total 600 ml # Voids 1 Vitals Signs Vitals VS - Last 72 Hours, by Label Date Time Temp Pulse Resp B/P (MAP) Pulse Ox O2 Delivery O2 Flow Rate FiO2 03/15/19 15:00 98.3 75 18 138/94 (109) 96 Room Air 98.3 03/15/19 11:00 97.7 86 18 114/80 (91) 96 Room Air 97.7 03/15/19 08:10 Room Air 03/15/19 07:43 90 03/15/19 07:42 90 03/15/19 07:00 97.7 87 18 140/88 (105) 95 Room Air 97.7 03/15/19 03:06 98.4 76 16 134/93 (107) 96 Room Air 98.4 03/14/19 22:53 98.2 80 16 132/82 (99) 97 Room Air 98.2 03/14/19 19:05 Room Air 03/14/19 19:00 97.9 90 16 135/89 (104) 95 Room Air 97.9 03/14/19 19:00 90 150/96 (114) 03/14/19 19:00 90 140/91 (107) 03/14/19 15:50 Room Air 03/14/19 14:45 98.4 82 22 137/93 (108) 96 Room Air 98.4 Laboratory Laboratory Laboratory Tests Test 03/15/19 04:10 Triglycerides Level 138 mg/dL (0-150) Cholesterol Level 157 mg/dL (0-200) LDL Cholesterol, Calculated 96 mg/dL (0-100) VLDL Cholesterol, Calculated 28 mg/dL (0-40) Non-HDL Cholesterol Calculated 124 mg/dL (0-129) HDL Cholesterol 33 mg/dL (40-60) Cholesterol/HDL Ratio 4.8 Medication Medications Current Medications Acetaminophen (Tylenol) 650 mg PRN Q6HRS PRN PO MILD PAIN Last administered on 03/15/19 12:10; Start 03/14/19 at 18:00 Amlodipine Besylate (Norvasc) 15 mg DAILY PO Last administered on 03/15/19 07:42; Start 03/15/19 at 09:00 Aspirin (Children'S Aspirin) 81 mg DAILY PO Last administered on 03/15/19 07:42; Start 03/15/19 at 09:00 Ceftriaxone Sodium (Rocephin) 1 gm Q24H IVP Last administered on 03/14/19 21:48; Start 03/14/19 at 21:00 Clonidine HCl (Catapres) 0.1 mg DAILY PO Last administered on 03/15/19 07:43; Start 03/15/19 at 09:00 Gadobutrol (Gadavist) 7.5 mmol 1X ONCE IV Last administered on 03/15/19 12:15; Start 03/15/19 at 12:15; Stop 03/15/19 at 12:16; Status DC Hydrochlorothiazide (Hydrodiuril) 25 mg DAILY PO Last administered on 03/15/19 07:42; Start 03/15/19 at 09:00 Lactobacillus Rhamnosus (Culturelle) 1 cap BID PO Last administered on 03/15/19 12:10; Start 03/15/19 at 09:00 Levothyroxine Sodium (Synthroid) 100 mcg DAILYAC PO Last administered on 03/15/19 06:05; Start 03/15/19 at 07:30 Meloxicam (Mobic) 15 mg DAILY PO Last administered on 03/15/19at 07:43; Start 03/15/19 at 09:00 Thiamine Mononitrate (Vitamin B-1) 100 mg DAILY PO Last administered on 03/15/19at 07:42; Start 03/14/19 at 18:00 Varenicline (Chantix) 1 mg BID PO ; Start 03/14/19 at 21:00 Comment Review of Relevant I have reviewed the following items eva (where applicable) has been applied. DARRICK CHRISTINA MD Mar 15, 2019 17:07
[2019-03-15] MEDS ORDERED: LACT1CAP6 PO (17:27)
--- NOTE | 2019-03-15 17:58 | NUR ---
Discharge: Spoke with Dr. Alvarado. Patient requesting to leave. Dr. Alvarado said it was ok to discharge even though we do not have the results of EEG or urine culture. Call Dr. Barroso's office next week to get prescription for antibiotic. Discharge teaching verbal and written. Reviewed medications, follow-up, UTI, seizure, syncope, event monitor, ect. Patient verbalized understanding. IV removed without complications, catheter tip in-tact. All belongings with patient. Waiting on patients son to arrive.
--- NOTE | 2019-03-15 18:26 | EEG ---
DATE OF SERVICE: 03/15/2019 EEG NUMBER: [id number]. OBJECTIVE: This is a 68-year-old male patient with history of syncope versus seizure. EEG was requested to help rule out seizure. METHODS: Twenty electrodes were applied according to the international 10-20 electrode placement system. EKG monitoring, hyperventilation, intermittent photic stimulation, monopolar and bipolar montages are routinely utilized. The record was obtained on a digital system with video monitoring. FINDINGS: 1. Background: The patient was recorded in the awake, drowsy, and sleep states. The overall background amplitude is 10-20 microvolts. A posterior dominant rhythm of 8 Hz is observed. 2. Abnormalities: No specific epileptiform discharge or electrographic seizure is seen. No focal or diffuse slowing. 3. Activation: Hyperventilation was performed with good efforts and normal response. Intermittent photic stimulation was performed with photic driving. No specific epileptiform discharge or electrographic seizure induced by hyperventilation or intermittent photic stimulation. IMPRESSION: This EEG is a normal study for the awake, drowsy, and sleep states. No focal, lateralizing, specific epileptiform discharge or electrographic seizure is seen. DARRICK CHRISTINA MD DR: RICHY/chava JOB#: [id number] / [id number] PETE
--- NOTE | 2019-03-16 08:22 | PDOC ---
Provider Note Provider Note [id number] CAROLINA ALVAREZ MD Mar 16, 2019 08:22
--- NOTE | 2019-03-16 17:14 | DS ---
DATE OF DISCHARGE: 03/15/2019 HOSPITAL SUMMARY: A 68-year-old white male, patient of Dr. Barroso, who came in with what appeared to be a syncopal episode and some mild facial trauma. CT scans of the head and neck revealed degenerative changes of the neck with no intracranial abnormalities. MRI of the brain showed no acute change as well. EEG is pending. His laboratory studies including CBC and chemistry profile, lipid profile and TSH were normal. Urine drug screen was negative. Urinalysis showed evidence of infection. Urine culture is growing out gram-negative rods greater than 10 to the 6th colonies. He was treated with IV Rocephin while in the hospital and got 2 doses and that was monitored with no significant arrhythmias or abnormalities noted. His blood pressure remained normal and there was no evidence of obvious etiology of his syncopal episode nor any evidence of sepsis. He demanded to be discharged later on the day of the even though he is made aware that he has evidence of urinary tract infection and ongoing treatment was dependent upon knowledge of the culture, which was not available at the time of discharge. He understood the risks of this decision and left the hospital at that point. FINAL DIAGNOSES: 1. Acute syncopal episode, etiology undetermined. 2. Urinary tract infection. OPERATIONS, PROCEDURES, COMPLICATIONS: None. CONSULTATIONS: Dr. Ruiz. DISPOSITION: He will continue all of his home medications for blood pressure and joint pain. No antibiotics were prescribed as we do not have the information from the urine culture to dictate the proper treatment at this time and he will contact Dr. Barroso on his office visit to determine what further medication will be needed after his 2 doses of Rocephin. Prostatic evaluation and renal evaluation would be appropriate to consider in the male with urinary tract infection as well. CAROLINA ALVAREZ MD DR: MEGHA/chava JOB#: [id number] / [id number]
== END 2019-03-15 18:30 | disposition home or self-care (01) | DRG 689 ==
LOC: 2 SOUTH 14:09
PROVIDERS: ADMIT Family Medicine; ATTEND Family Medicine
DX: N39.0 Urinary tract infection, site not specified (principal); G93.41 Metabolic encephalopathy; R55 Syncope and collapse; S00.91XA Abrasion of unspecified part of head, initial encounter; M19.90 Unspecified osteoarthritis, unspecified site; E03.9 Hypothyroidism, unspecified; I10 Essential (primary) hypertension; J45.909 Unspecified asthma, uncomplicated; W19.XXXA Unspecified fall, initial encounter; Y93.89 Activity, other specified; Y92.096 Garden or yard of other non-institutional residence as the place of occurrence of the external cause; Y99.8 Other external cause status; Z87.442 Personal history of urinary calculi; Z87.891 Personal history of nicotine dependence; Z79.82 Long term (current) use of aspirin; Z82.49 Family history of ischemic heart disease and other diseases of the circulatory system
CPT/HCPCS: 36415; 70450; 70553; 72125; 80053; 80061; 80307; 81001; 84443; 85025; 87086; 87186; 93306; 95816; A9585; J0696